=== PATIENT | male | born 1945 | race Caucasian/White ===

== ENCOUNTER → 2019-04-13 13:32 | Outpatient (CLI) | payer MEDICARE, OTHER ==
[2014-10-22 10:18] VITALS: BMI 28.0
[~2019-04-13 13:32] MED LIST: BAYER CHEWABLE81 MG PO; CO Q-1030 MG PO; COZAAR50 MG PO; GLUCOPHAGE500 MG PO; HCTZ25 MG PO; PACERONE200 MG PO; PRAVACHOL40 MG PO; VITAMIN B-122500 MCG PO; VITAMIN D31000 UNI2
== END | disposition home or self-care (01) ==
LOC: D.HCCARDIO 13:32
PROVIDERS: ATTEND Internal Medicine Cardiovascular Disease
DX: I25.10 Atherosclerotic heart disease of native coronary artery without angina pectoris (principal); I34.0 Nonrheumatic mitral (valve) insufficiency